=== PATIENT | female | born 1965 | race Caucasian/White ===

== ENCOUNTER → 2017-10-05 | Outpatient (CLI) | payer MEDICARE ==
[~2017-10-05] MED LIST: AUGMENTIN1 TA2 PO; GABAPENTIN300 M1 PO; GLIMEPIRIDE 4MG4 MG PO; INVOKANA300 MG PO; LOSARTAN/HCT TAB 100 PO; MELOXICAM7.5 MG PO; METOPROLOL SUCC25 M2 PO; OPANA ER20 MG PO; OXYMORPHONE HYD10 MG PO; VALACYCLOVIR HYD1 GM PO
--- NOTE | 2017-10-05 11:56 | RADIOLOGY REPORT PS360 ---
CT ABD PELVIS W/O CONTRAST CLINICAL INDICATION: Right flank pain radiating into the right lower quadrant RT FLANK PAIN ORDERING PHYSICIAN: MAKEDA LEVINE PATIENT AGE: 51 years COMPARISON: 08/29/2008 TECHNIQUE: Axial images obtained with sagittal and coronal reformats. PROCEDURE: Oral Contrast: None IV Contrast: None . FINDINGS: Lower thorax: No acute finding . Small hiatal hernia. Bilateral breast implants are present Prior cholecystectomy. No ductal dilatation. The liver has an unremarkable appearance borderline splenomegaly at 13 cm. The adrenal glands and pancreas have an unremarkable unenhanced appearance. No renal calculi or hydronephrosis. No ureteral calculi. There is been prior appendectomy. No intestinal obstruction or free air. Diverticulosis involves the descending and sigmoid colon but no evidence of diverticulitis. There is a 1.8 cm left ovarian cyst. The uterus is slightly bulky nonspecific. No urinary bladder calculi. No free fluid or focal inflammatory change within the pelvis. No acute bony anomalies. IMPRESSION: 1. No acute abdominal or pelvic findings. 2. Borderline splenomegaly 3. 1.8 cm left ovarian cyst
== END ==
LOC: RAD 11:05
DX: R10.9 Unspecified abdominal pain (principal)

== ENCOUNTER → 2017-10-13 | Outpatient (CLI) | payer MEDICARE ==
--- NOTE | 2017-10-14 06:10 | RADIOLOGY REPORT PS360 ---
EXAM: THORACIC SPINE-3V SWIMMERS HISTORY: MID-BACK PAIN COMPARISON: None FINDINGS: No fracture or dislocation. No lytic or blastic change. There is mild lower thoracic scoliosis convex right. Multilevel degenerative disc disease is present with endplate osteophytes throughout the thoracic spine. There is degenerative disc disease in the lower cervical spine. IMPRESSION: 1. Degenerative disc disease with osteophytosis and scoliosis. 2. No acute finding
== END ==
LOC: RAD 18:17
DX: M54.6 Pain in thoracic spine (principal)

== ENCOUNTER → 2017-10-24 | Outpatient (CLI) | payer MEDICARE ==
[~2017-10-24] MED LIST changes: +HYDROCODONE/ACE1 TA5 PO; +LOSARTAN POTAS100 MG PO
--- NOTE | 2017-10-27 12:41 | RADIOLOGY REPORT PS360 ---
MRI-L-SPINE W/O, MRI-3D RENDERING/MYELOGRAM Ordering Physician: LETICIA BOSTON Patient Age: 51 years: Female HISTORY: OTHER INTERVERTEBRAL DISC DEGENERATION Low back pain 2 months bilateral leg pain and numbness right low back pain and hip numbness.. Left lower leg numbness. TECHNIQUE: Sagittal STIR, T1, T2, axial T1 and T2. On 1.5T Siemens wide bore MRI. 3-D MR myelogram image set obtained & performed on MRI workstation. Additional sagittal thin section T2 weighted dataset obtained from this latter acquisition as well (---76 CPT) COMPARISON :Lumbar spine series 06/15/2016. Also CT abdomen reconstructions from October 05, 2017. FINDINGS Levocurvature of L-spine. Vertebral bodies intact. Disc spaces heights are fairly well-maintained throughout lumbar region. Only scant narrowing posteriorly at L5/S1 L5/S1. Moderate asymmetric disc bulge to the left. This along with the generous facet hypertrophy yields generous foraminal encroachment on the left & moderate on the right at L5/S1. These features. Impinge upon the left L5 & or possibly left S1 nerve root if radicular symptoms in this distribution L4/5 foraminal disc bulge to the left. Moderate/generous facet hypertrophy. Features combine to yield generous foraminal encroachment on the left. Mild encroachment on right. L3/4. Mild diffuse disc bulge. Mild facet hypertrophy/ arthropathy. Mild foraminal disc bulge yields mild encroachment upon left foramen. L2/3. Disc intact. L1/2 T12/L1 disc intact. T11/12 disc intact. Mild Facet arthropathy throughout the lower T-spine and upper L-spine 3-D MR myelogram image set shows no prominent findings. Only slight indentation on to the left ankle sac at L4/5. L5/S1 with only slight tapering of thecal sac, question. Mild levoscoliosis noted. IMPRESSION 1. No prominent disc herniation or spinal stenosis. 2. Degenerative changes most evident L4/5, L5/S1: L4/5. Eccentric disc bulge towards left foramen. This along with moderate facet hypertrophy does yield a moderate/generous foraminal & recess encroachment on the Left & mild on Right.. Slight narrowing the spinal canal-borderline spinal stenosis L5/S1. Eccentric disc bulge to the left. A generous facet hypertrophy, arthropathy. A generous recess and foraminal encroachment on the left more so than right. 3. Borderline to mild splenomegaly. Again noted Recent September 2017 CT abdomen pelvis is helpful in correlating lumbar findings
== END ==
LOC: RAD 10-19 08:45
DX: M51.36 Other intervertebral disc degeneration, lumbar region (principal)